=== PATIENT | male | born 1955 ===

== ENCOUNTER 2021-02-04 18:22 | Inpatient (IN) | payer OTHER ==
[2021-02-04] MEDS ORDERED: BISMUTH SUBSALICYLATE 524 MG/30 ML PO PRN (23:24)
[2021-02-04] MEDS ORDERED: MENTHOL/PHENOL 1 EACH UD MM PRN (23:24)
[2021-02-04] MEDS ORDERED: NICOTINE POLACRILEX 2 MG GUM BUC PRN (23:24)
[2021-02-04] MEDS ORDERED: IBUPROFEN 400 MG TABLET (FP) PO PRN (23:24)
[2021-02-04] MEDS ORDERED: ACETAMINOPHEN 325 MG TABLET (FP) PO PRN ×2 (23:24)
[2021-02-04] MEDS ORDERED: MAG HYDROX/AL HYDROX/SIMETH 30 ML UNIT-DOSE CUP PO PRN (23:24)
[2021-02-04] MEDS ORDERED: ONDANSETRON *ODT* 4 MG TABLET SL PRN (23:24)
[2021-02-04] MEDS ORDERED: MAGNESIUM CITRATE 300 ML BOTTLE PO PRN (23:24)
[2021-02-04] MEDS ORDERED: METHOCARBAMOL 500 MG TABLET PO PRN (23:24)
[2021-02-04] MEDS ORDERED: MAGNESIUM HYDROX 2400MG/30ML ORAL SUSPENSION 30 ML CUP PO PRN (23:24)
[2021-02-04] MEDS ORDERED: diazePAM 5 MG TABLET PO PRN (23:28)
[2021-02-05] MEDS: diazePAM 5 MG TABLET PO SCH ×5 (06:29→22:33)
[2021-02-05] MEDS ORDERED: diazePAM 5 MG TABLET ONE ×2 (06:30→10:28)
[2021-02-05 08:11] VITALS: BMI 23.9
[2021-02-05] MEDS ORDERED: METFORMIN HCL 1000 MG PO SCH (10:00)
[2021-02-05] MEDS ORDERED: LEVOTHYROXINE NA 88 MCG TABLET (FP) PO SCH (10:00)
[2021-02-05] MEDS ORDERED: ESOMEPRAZOLE MAGNESIUM 20 MG PO SCH (10:00)
[2021-02-05] MEDS ORDERED: PATIENT'S OWN MEDICATION (NON-FORMULARY) (Simvastatin 20 MG) PO SCH (10:00)
[2021-02-05] MEDS: NICOTINE 14 MG/24 HOURS TOPICAL PATCH TD SCH (10:32)
[2021-02-05] MEDS: PRENATAL VITAMINS W/ FOLIC ACID TABLET (FP) PO SCH (10:32)
[2021-02-05 17:04] LABS: HEMATOCRIT 37.1 % (35.4-49); HEMOGLOBIN 12.2 GM/dL (11.7-16.9); MCH 28.6 pg (25.7-33.7); MCHC 32.7 g/dl (32.0-35.9); MEAN CELL VOLUME 87.5 fl (80-96); MEAN PLT VOLUME 7.7 fl (7.5-11.1); PLATELET COUNT 345 10^3/uL (134-434); RBC 4.25 M/mm3 (4.00-5.60); RDW 19.5 % (11.9-15.9); WHITE BLOOD COUNT 5.4 K/mm3 (4.0-10.0)
[2021-02-05 17:05] LABS: ALBUMIN 3.2 g/dl (3.4-5.0)
[2021-02-05 17:07] LABS: BILIRUBIN,TOTAL 0.2 mg/dL (0.2-1)
[2021-02-05 17:08] LABS: CALCIUM 9.3 mg/dL (8.5-10.1)
[2021-02-05] MEDS: MELATONIN 5 MG TABLETS PO SCH (22:33)
[2021-02-05] MEDS: ATORVASTATIN CA 10 MG TABLET (FP) PO SCH (22:33)
[2021-02-05] MEDS: THIAMINE HCL 100 MG TABLET (FP) PO SCH (22:44)
[2021-02-06] MEDS: diazePAM 5 MG TABLET PO SCH ×3 (05:52→22:43)
[2021-02-06] MEDS: LEVOTHYROXINE NA 88 MCG TABLET (FP) PO SCH (06:03)
[2021-02-06] MEDS ORDERED: WITCH HAZEL 50% (TUCKS) 40 PAD/JAR PAD TP SCH (10:15)
[2021-02-06] MEDS: NICOTINE 14 MG/24 HOURS TOPICAL PATCH TD SCH (10:23)
[2021-02-06] MEDS: PANTOPRAZOLE 20 MG TABLET PO SCH (10:23)
[2021-02-06] MEDS: PRENATAL VITAMINS W/ FOLIC ACID TABLET (FP) PO SCH (10:23)
[2021-02-06] MEDS: MICONAZOLE NITRATE 28 GM TUBE TP SCH ×2 (13:21→22:44)
[2021-02-06] MEDS: THIAMINE HCL 100 MG TABLET (FP) PO SCH (22:43)
[2021-02-06] MEDS: MELATONIN 5 MG TABLETS PO SCH (22:43)
[2021-02-06] MEDS: ATORVASTATIN CA 10 MG TABLET (FP) PO SCH (22:43)
[2021-02-07] MEDS: diazePAM 5 MG TABLET PO SCH ×2 (05:51→17:48)
[2021-02-07] MEDS: LEVOTHYROXINE NA 88 MCG TABLET (FP) PO SCH (06:27)
[2021-02-07] MEDS: PRENATAL VITAMINS W/ FOLIC ACID TABLET (FP) PO SCH (10:32)
[2021-02-07] MEDS: PANTOPRAZOLE 20 MG TABLET PO SCH (10:32)
[2021-02-07] MEDS: NICOTINE 14 MG/24 HOURS TOPICAL PATCH TD SCH (10:33)
[2021-02-07] MEDS: MICONAZOLE NITRATE 28 GM TUBE TP SCH ×2 (10:35→22:46)
[2021-02-07] MEDS: THIAMINE HCL 100 MG TABLET (FP) PO SCH (22:45)
[2021-02-07] MEDS: MELATONIN 5 MG TABLETS PO SCH (22:45)
[2021-02-07] MEDS: ATORVASTATIN CA 10 MG TABLET (FP) PO SCH (22:45)
[2021-02-08] MEDS ORDERED: P-EPHED 60MG/TRIPROLIDI 2.5MG TABLET PO PRN (03:45)
[2021-02-08] MEDS ORDERED: diazePAM 5 MG TABLET PO ONE (06:00)
[2021-02-08] MEDS: LEVOTHYROXINE NA 88 MCG TABLET (FP) PO SCH (06:12)
[2021-02-08 08:50] VITALS: BP 127/79; PULSE 70; TEMP 96.9
== END 2021-02-08 10:28 | disposition home or self-care (01) | DRG 897 ==
LOC: YASAS 18:22 → Y3N 02-05 11:16
PROVIDERS: ADMIT Allergy & Immunology; ATTEND Allergy & Immunology
PROC: HZ2ZZZZ Detoxification Services for Substance Abuse Treatment (ICD-10-PCS; principal; 2021-02-05)
DX: F10.230 Alcohol dependence with withdrawal, uncomplicated (principal); F14.20 Cocaine dependence, uncomplicated; F17.210 Nicotine dependence, cigarettes, uncomplicated; I10 Essential (primary) hypertension; E78.5 Hyperlipidemia, unspecified; E03.9 Hypothyroidism, unspecified; E11.9 Type 2 diabetes mellitus without complications; K21.9 Gastro-esophageal reflux disease without esophagitis; Z86.19 Personal history of other infectious and parasitic diseases; Z79.84 Long term (current) use of oral hypoglycemic drugs
CPT/HCPCS: 36415; 80053; 82962; 85027; 86593; 86780; 93005; 93010; C9803; U0003; U0005

== ENCOUNTER 2022-05-26 14:02 | Inpatient (IN) | payer OTHER ==
[2022-05-26 16:57] VITALS: BMI 21.7
[2022-05-26] MEDS ORDERED: DICYCLOMINE HCL 10 MG CAPSULE PO PRN (17:38)
[2022-05-26] MEDS ORDERED: ONDANSETRON *ODT* 4 MG TABLET SL PRN (17:38)
[2022-05-26] MEDS ORDERED: LOPERAMIDE HCL 2 MG CAPSULE PO PRN (17:38)
[2022-05-26] MEDS ORDERED: MAG HYDROX/AL HYDROX/SIMETH 30 ML UNIT-DOSE CUP PO PRN (17:38)
[2022-05-26] MEDS ORDERED: BENZOCAINE/MENTHOL (CHLORASEPTIC ) LOZENGE MM PRN (17:38)
[2022-05-26] MEDS ORDERED: BISMUTH SUBSALICYLATE 524 MG/30 ML PO PRN (17:38)
[2022-05-26] MEDS ORDERED: IBUPROFEN 600 MG TABLET (FP) PO PRN (17:38)
[2022-05-26] MEDS ORDERED: NALOXONE HCL (KLOXXADO) 8 MG SPRAY NS PRN (17:38)
[2022-05-26] MEDS ORDERED: MAGNESIUM HYDROX 2400MG/30ML ORAL SUSPENSION 30 ML CUP PO PRN (17:38)
[2022-05-26] MEDS ORDERED: ACETAMINOPHEN 325 MG TABLET (FP) PO PRN ×2 (17:38)
[2022-05-26] MEDS ORDERED: POLYETHYLENE GLYCOL (HEALTHYLAX) 3350 17 GM PACKET PO PRN (17:38)
[2022-05-26] MEDS ORDERED: NICOTINE 10 MG CARTRIDGE (INHALER) IH PRN (17:38)
[2022-05-26] MEDS ORDERED: IBUPROFEN 400 MG TABLET (FP) PO PRN (17:38)
[2022-05-26] MEDS: MELATONIN 5 MG TABLETS PO SCH (21:39)
[2022-05-26] MEDS: THIAMINE HCL 100 MG TABLET (FP) PO SCH (21:39)
[2022-05-27] MEDS: METHOCARBAMOL 500 MG TABLET PO PRN ×2 (05:51→22:41)
[2022-05-27] MEDS: hydrOXYzine PAMOATE 25 MG CAPSULE (FP) PO PRN ×2 (05:51→22:42)
[2022-05-27] MEDS: PRENATAL VITAMINS W/ FOLIC ACID TABLET (FP) PO SCH (10:30)
[2022-05-27 10:45] LABS: HEMATOCRIT 34.9 % (35.4-49); HEMOGLOBIN 11.5 GM/dL (11.7-16.9); MCH 29.5 pg (25.7-33.7); MEAN CELL VOLUME 89.3 fl (80-96); MEAN PLT VOLUME 7.4 fl (7.5-11.1); PLATELET COUNT 375 10^3/uL (134-434); RBC 3.91 M/mm3 (4.00-5.60); RDW 17.3 % (11.9-15.9); WHITE BLOOD COUNT 6.7 K/mm3 (4.0-10.0)
[2022-05-27] MEDS: LEVOTHYROXINE NA 88 MCG TABLET (FP) PO SCH (11:10)
[2022-05-27] MEDS: guaiFENesin 600 MG TABLET.ER (FP) PO SCH ×2 (12:17→22:42)
[2022-05-27 12:51] LABS: BLOOD UREA NITROGEN 18.7 mg/dL (7-18); CALCIUM 9.4 mg/dL (8.5-10.1)
[2022-05-27 12:52] LABS: ALBUMIN 3.9 g/dl (3.4-5.0)
[2022-05-27 12:55] LABS: CREATININE 1.2 mg/dL (0.55-1.3)
[2022-05-27 12:56] LABS: TOT PROT 7.7 g/dl (6.4-8.2)
[2022-05-27 12:57] LABS: BILIRUBIN,TOTAL 0.5 mg/dL (0.2-1)
[2022-05-27] MEDS: MESALAMINE 800 MG TABLET.DR PO SCH ×2 (13:46→22:41)
[2022-05-27] MEDS ORDERED: MESALAMINE 800 MG TABLET.DR PO SCH (14:00)
[2022-05-27] MEDS ORDERED: metFORMIN HCL 500 MG TABLET (FP) PO SCH (16:30)
[2022-05-27] MEDS ORDERED: ATORVASTATIN CA 10 MG TABLET (FP) PO SCH (22:00)
[2022-05-27] MEDS: MELATONIN 5 MG TABLETS PO SCH (22:41)
[2022-05-27] MEDS: THIAMINE HCL 100 MG TABLET (FP) PO SCH (22:42)
[2022-05-28] MEDS: MESALAMINE 800 MG TABLET.DR PO SCH ×2 (05:44→14:15)
[2022-05-28] MEDS: LEVOTHYROXINE NA 88 MCG TABLET (FP) PO SCH (06:06)
[2022-05-28] MEDS ORDERED: amLODIPine BESYLATE 5 MG TABLET (FP) PO SCH (10:00)
[2022-05-28] MEDS ORDERED: PANTOPRAZOLE 20 MG TABLET PO SCH (10:00)
[2022-05-28] MEDS: PRENATAL VITAMINS W/ FOLIC ACID TABLET (FP) PO SCH (10:25)
[2022-05-28] MEDS: guaiFENesin 600 MG TABLET.ER (FP) PO SCH (10:25)
[2022-05-28 17:18] VITALS: BP 120/77; PULSE 73; RESP 18; TEMP 97.7
== END 2022-05-28 18:49 | disposition other institution (70) | DRG 897 ==
LOC: YASAS 14:02 → Y3N 21:05 → UNDOADMIN 21:05
PROVIDERS: ADMIT Allergy & Immunology; ATTEND Surgery
PROC: HZ2ZZZZ Detoxification Services for Substance Abuse Treatment (ICD-10-PCS; principal; 2022-05-26)
DX: F10.230 Alcohol dependence with withdrawal, uncomplicated (principal); F14.20 Cocaine dependence, uncomplicated; F17.210 Nicotine dependence, cigarettes, uncomplicated; E78.2 Mixed hyperlipidemia; E03.9 Hypothyroidism, unspecified; E11.9 Type 2 diabetes mellitus without complications; Z79.84 Long term (current) use of oral hypoglycemic drugs; I10 Essential (primary) hypertension
CPT/HCPCS: 36415; 80053; 82962; 84443; 85027; 86593; 86780; C9803-CS; U0003; U0005

== ENCOUNTER 2022-05-28 18:57 | Inpatient (IN) | payer OTHER ==
[2022-05-28] MEDS ORDERED: IBUPROFEN 400 MG TABLET (FP) PO PRN (21:00)
[2022-05-28] MEDS ORDERED: MAGNESIUM HYDROX 2400MG/30ML ORAL SUSPENSION 30 ML CUP PO PRN (21:00)
[2022-05-28] MEDS ORDERED: BENZOCAINE/MENTHOL (CHLORASEPTIC ) LOZENGE MM PRN (21:00)
[2022-05-28] MEDS ORDERED: LOPERAMIDE HCL 2 MG CAPSULE PO PRN (21:00)
[2022-05-28] MEDS ORDERED: guaiFENesin 200 MG/10 ML 10 ML UNIT-DOSE CUPS PO PRN (21:00)
[2022-05-28] MEDS ORDERED: ACETAMINOPHEN 325 MG TABLET (FP) PO PRN (21:00)
[2022-05-28] MEDS ORDERED: POLYETHYLENE GLYCOL (HEALTHYLAX) 3350 17 GM PACKET PO PRN (21:00)
[2022-05-28] MEDS ORDERED: P-EPHED 60MG/TRIPROLIDI 2.5MG TABLET PO PRN (21:00)
[2022-05-28] MEDS ORDERED: NICOTINE POLACRILEX 2 MG GUM BUC PRN (21:00)
[2022-05-28] MEDS: ATORVASTATIN CA 10 MG TABLET (FP) PO SCH (21:22)
[2022-05-28] MEDS: THIAMINE HCL 100 MG TABLET (FP) PO SCH (21:22)
[2022-05-28] MEDS: MESALAMINE 800 MG TABLET.DR PO SCH (23:38)
[2022-05-29] MEDS: LEVOTHYROXINE NA 88 MCG TABLET (FP) PO SCH (06:17)
[2022-05-29] MEDS: MESALAMINE 800 MG TABLET.DR PO SCH ×3 (06:17→21:27)
[2022-05-29] MEDS: PANTOPRAZOLE 20 MG TABLET PO SCH (09:49)
[2022-05-29] MEDS: amLODIPine BESYLATE 5 MG TABLET (FP) PO SCH (09:49)
[2022-05-29] MEDS: PRENATAL VITAMINS W/ FOLIC ACID TABLET (FP) PO SCH (09:49)
[2022-05-29] MEDS: MELATONIN 5 MG TABLETS PO PRN (21:27)
[2022-05-29] MEDS: THIAMINE HCL 100 MG TABLET (FP) PO SCH (21:27)
[2022-05-29] MEDS: ATORVASTATIN CA 10 MG TABLET (FP) PO SCH (21:27)
[2022-05-30] MEDS: MESALAMINE 800 MG TABLET.DR PO SCH ×3 (06:46→21:38)
[2022-05-30] MEDS: LEVOTHYROXINE NA 88 MCG TABLET (FP) PO SCH (06:48)
[2022-05-30] MEDS: amLODIPine BESYLATE 5 MG TABLET (FP) PO SCH (10:07)
[2022-05-30] MEDS: PRENATAL VITAMINS W/ FOLIC ACID TABLET (FP) PO SCH (10:07)
[2022-05-30] MEDS: PANTOPRAZOLE 20 MG TABLET PO SCH (10:07)
[2022-05-30] MEDS: MELATONIN 5 MG TABLETS PO PRN (21:38)
[2022-05-30] MEDS: THIAMINE HCL 100 MG TABLET (FP) PO SCH (21:38)
[2022-05-30] MEDS: ATORVASTATIN CA 10 MG TABLET (FP) PO SCH (21:38)
[2022-05-31] MEDS: MESALAMINE 800 MG TABLET.DR PO SCH ×3 (06:51→21:12)
[2022-05-31] MEDS: LEVOTHYROXINE NA 88 MCG TABLET (FP) PO SCH (06:54)
[2022-05-31 09:16] LABS: HIV INTERPRETATION NEGATIVE (NEGATIVE)
[2022-05-31] MEDS: PANTOPRAZOLE 20 MG TABLET PO SCH (09:40)
[2022-05-31] MEDS: PRENATAL VITAMINS W/ FOLIC ACID TABLET (FP) PO SCH (09:40)
[2022-05-31] MEDS: amLODIPine BESYLATE 5 MG TABLET (FP) PO SCH (09:40)
[2022-05-31] MEDS: ATORVASTATIN CA 10 MG TABLET (FP) PO SCH (21:11)
[2022-05-31] MEDS: THIAMINE HCL 100 MG TABLET (FP) PO SCH (21:11)
[2022-05-31] MEDS: MELATONIN 5 MG TABLETS PO PRN (21:12)
[2022-06-01] MEDS: MESALAMINE 800 MG TABLET.DR PO SCH ×3 (06:16→21:47)
[2022-06-01] MEDS: LEVOTHYROXINE NA 88 MCG TABLET (FP) PO SCH (06:16)
[2022-06-01] MEDS: PRENATAL VITAMINS W/ FOLIC ACID TABLET (FP) PO SCH (09:49)
[2022-06-01] MEDS: PANTOPRAZOLE 20 MG TABLET PO SCH (09:50)
[2022-06-01] MEDS: amLODIPine BESYLATE 5 MG TABLET (FP) PO SCH (09:50)
[2022-06-01] MEDS: THIAMINE HCL 100 MG TABLET (FP) PO SCH (21:47)
[2022-06-01] MEDS: ATORVASTATIN CA 10 MG TABLET (FP) PO SCH (21:47)
[2022-06-02] MEDS: LEVOTHYROXINE NA 88 MCG TABLET (FP) PO SCH (06:35)
[2022-06-02] MEDS: MESALAMINE 800 MG TABLET.DR PO SCH ×3 (06:35→21:19)
[2022-06-02] MEDS: PANTOPRAZOLE 20 MG TABLET PO SCH (09:42)
[2022-06-02] MEDS: amLODIPine BESYLATE 5 MG TABLET (FP) PO SCH (09:42)
[2022-06-02] MEDS: PRENATAL VITAMINS W/ FOLIC ACID TABLET (FP) PO SCH (09:42)
[2022-06-02] MEDS: ATORVASTATIN CA 10 MG TABLET (FP) PO SCH (21:19)
[2022-06-02] MEDS: THIAMINE HCL 100 MG TABLET (FP) PO SCH (21:19)
[2022-06-03] MEDS: MESALAMINE 800 MG TABLET.DR PO SCH ×3 (05:19→21:03)
[2022-06-03] MEDS: LEVOTHYROXINE NA 88 MCG TABLET (FP) PO SCH (06:27)
[2022-06-03] MEDS: PANTOPRAZOLE 20 MG TABLET PO SCH (09:30)
[2022-06-03] MEDS: amLODIPine BESYLATE 5 MG TABLET (FP) PO SCH (09:30)
[2022-06-03] MEDS: PRENATAL VITAMINS W/ FOLIC ACID TABLET (FP) PO SCH (09:30)
[2022-06-03] MEDS: ATORVASTATIN CA 10 MG TABLET (FP) PO SCH (21:03)
[2022-06-03] MEDS: THIAMINE HCL 100 MG TABLET (FP) PO SCH (21:04)
[2022-06-04] MEDS: MESALAMINE 800 MG TABLET.DR PO SCH ×3 (06:26→21:31)
[2022-06-04] MEDS: LEVOTHYROXINE NA 88 MCG TABLET (FP) PO SCH (06:27)
[2022-06-04] MEDS: PRENATAL VITAMINS W/ FOLIC ACID TABLET (FP) PO SCH (09:39)
[2022-06-04] MEDS: PANTOPRAZOLE 20 MG TABLET PO SCH (09:40)
[2022-06-04] MEDS: amLODIPine BESYLATE 5 MG TABLET (FP) PO SCH (09:40)
[2022-06-04] MEDS: MELATONIN 5 MG TABLETS PO PRN (21:30)
[2022-06-04] MEDS: ATORVASTATIN CA 10 MG TABLET (FP) PO SCH (21:31)
[2022-06-04] MEDS: THIAMINE HCL 100 MG TABLET (FP) PO SCH (21:31)
[2022-06-04] MEDS: MESALAMINE 4 GM/60 ML ENEMA RC SCH (21:32)
[2022-06-05] MEDS: MESALAMINE 800 MG TABLET.DR PO SCH ×3 (07:55→21:11)
[2022-06-05] MEDS: LEVOTHYROXINE NA 88 MCG TABLET (FP) PO SCH (07:56)
[2022-06-05] MEDS: amLODIPine BESYLATE 5 MG TABLET (FP) PO SCH (09:35)
[2022-06-05] MEDS: PRENATAL VITAMINS W/ FOLIC ACID TABLET (FP) PO SCH (09:36)
[2022-06-05] MEDS: PANTOPRAZOLE 20 MG TABLET PO SCH (09:36)
[2022-06-05] MEDS: THIAMINE HCL 100 MG TABLET (FP) PO SCH (21:10)
[2022-06-05] MEDS: MESALAMINE 4 GM/60 ML ENEMA RC SCH (21:11)
[2022-06-05] MEDS: ATORVASTATIN CA 10 MG TABLET (FP) PO SCH (21:11)
[2022-06-06] MEDS: LEVOTHYROXINE NA 88 MCG TABLET (FP) PO SCH (06:43)
[2022-06-06] MEDS: MESALAMINE 800 MG TABLET.DR PO SCH ×3 (06:43→21:08)
[2022-06-06] MEDS: amLODIPine BESYLATE 5 MG TABLET (FP) PO SCH (09:40)
[2022-06-06] MEDS: PANTOPRAZOLE 20 MG TABLET PO SCH (09:40)
[2022-06-06] MEDS: PRENATAL VITAMINS W/ FOLIC ACID TABLET (FP) PO SCH (09:40)
[2022-06-06] MEDS: ATORVASTATIN CA 10 MG TABLET (FP) PO SCH (21:08)
[2022-06-06] MEDS: MESALAMINE 4 GM/60 ML ENEMA RC SCH (21:08)
[2022-06-06] MEDS: THIAMINE HCL 100 MG TABLET (FP) PO SCH (21:08)
[2022-06-07] MEDS: MESALAMINE 800 MG TABLET.DR PO SCH ×3 (07:06→21:57)
[2022-06-07] MEDS: LEVOTHYROXINE NA 88 MCG TABLET (FP) PO SCH (07:07)
[2022-06-07] MEDS: PANTOPRAZOLE 20 MG TABLET PO SCH (09:28)
[2022-06-07] MEDS: PRENATAL VITAMINS W/ FOLIC ACID TABLET (FP) PO SCH (09:28)
[2022-06-07] MEDS: amLODIPine BESYLATE 5 MG TABLET (FP) PO SCH (09:28)
[2022-06-07] MEDS: ATORVASTATIN CA 10 MG TABLET (FP) PO SCH (21:57)
[2022-06-07] MEDS: THIAMINE HCL 100 MG TABLET (FP) PO SCH (21:57)
[2022-06-07] MEDS: MELATONIN 5 MG TABLETS PO PRN (21:57)
[2022-06-07] MEDS: MESALAMINE 4 GM/60 ML ENEMA RC SCH (21:58)
[2022-06-08] MEDS: LEVOTHYROXINE NA 88 MCG TABLET (FP) PO SCH (06:58)
[2022-06-08] MEDS: MESALAMINE 800 MG TABLET.DR PO SCH ×3 (06:58→21:11)
[2022-06-08] MEDS: PRENATAL VITAMINS W/ FOLIC ACID TABLET (FP) PO SCH (09:32)
[2022-06-08] MEDS: amLODIPine BESYLATE 5 MG TABLET (FP) PO SCH (09:32)
[2022-06-08] MEDS: PANTOPRAZOLE 20 MG TABLET PO SCH (09:32)
[2022-06-08] MEDS: MAG HYDROX/AL HYDROX/SIMETH 30 ML UNIT-DOSE CUP PO PRN ×2 (13:41→21:12)
[2022-06-08] MEDS: THIAMINE HCL 100 MG TABLET (FP) PO SCH (21:11)
[2022-06-08] MEDS: ATORVASTATIN CA 10 MG TABLET (FP) PO SCH (21:11)
[2022-06-08] MEDS: MELATONIN 5 MG TABLETS PO PRN (21:11)
[2022-06-08] MEDS: MESALAMINE 4 GM/60 ML ENEMA RC SCH (21:12)
[2022-06-09] MEDS: LEVOTHYROXINE NA 88 MCG TABLET (FP) PO SCH (07:08)
[2022-06-09] MEDS: MESALAMINE 800 MG TABLET.DR PO SCH ×3 (07:08→21:27)
[2022-06-09] MEDS: MAG HYDROX/AL HYDROX/SIMETH 30 ML UNIT-DOSE CUP PO PRN (07:10)
[2022-06-09] MEDS: PRENATAL VITAMINS W/ FOLIC ACID TABLET (FP) PO SCH (09:25)
[2022-06-09] MEDS: amLODIPine BESYLATE 5 MG TABLET (FP) PO SCH (09:25)
[2022-06-09] MEDS: PANTOPRAZOLE 20 MG TABLET PO SCH (09:47)
[2022-06-09] MEDS: MELATONIN 5 MG TABLETS PO PRN (21:26)
[2022-06-09] MEDS: MESALAMINE 4 GM/60 ML ENEMA RC SCH (21:27)
[2022-06-09] MEDS: THIAMINE HCL 100 MG TABLET (FP) PO SCH (21:27)
[2022-06-09] MEDS: ATORVASTATIN CA 10 MG TABLET (FP) PO SCH (21:27)
[2022-06-10 06:38] VITALS: RESP 18
[2022-06-10] MEDS: MESALAMINE 800 MG TABLET.DR PO SCH ×3 (07:00→21:27)
[2022-06-10] MEDS: LEVOTHYROXINE NA 88 MCG TABLET (FP) PO SCH (08:04)
[2022-06-10] MEDS: PRENATAL VITAMINS W/ FOLIC ACID TABLET (FP) PO SCH (10:46)
[2022-06-10] MEDS: PANTOPRAZOLE 20 MG TABLET PO SCH (10:46)
[2022-06-10] MEDS: amLODIPine BESYLATE 5 MG TABLET (FP) PO SCH (10:46)
[2022-06-10] MEDS: ATORVASTATIN CA 10 MG TABLET (FP) PO SCH (21:27)
[2022-06-10] MEDS: THIAMINE HCL 100 MG TABLET (FP) PO SCH (21:27)
[2022-06-10] MEDS: MESALAMINE 4 GM/60 ML ENEMA RC SCH (21:28)
[2022-06-11] MEDS: MESALAMINE 800 MG TABLET.DR PO SCH (06:32)
[2022-06-11] MEDS: LEVOTHYROXINE NA 88 MCG TABLET (FP) PO SCH (06:32)
[2022-06-11 07:12] VITALS: BP 123/63; PULSE 59; TEMP 98.4
[2022-06-11] MEDS: PRENATAL VITAMINS W/ FOLIC ACID TABLET (FP) PO SCH (09:36)
[2022-06-11] MEDS: PANTOPRAZOLE 20 MG TABLET PO SCH (09:36)
[2022-06-11] MEDS: amLODIPine BESYLATE 5 MG TABLET (FP) PO SCH (09:36)
== END 2022-06-11 10:00 | disposition home or self-care (01) | DRG 895 ==
LOC: YASAS 18:57 → Y5N 18:59
PROVIDERS: ADMIT Allergy & Immunology; ATTEND Allergy & Immunology
PROC: HZ42ZZZ Group Counseling for Substance Abuse Treatment, Cognitive-Behavioral (ICD-10-PCS; principal; 2022-05-28)
DX: F10.20 Alcohol dependence, uncomplicated (principal); F14.20 Cocaine dependence, uncomplicated; K51.00 Ulcerative (chronic) pancolitis without complications; F17.210 Nicotine dependence, cigarettes, uncomplicated; I10 Essential (primary) hypertension; E78.2 Mixed hyperlipidemia; E06.9 Thyroiditis, unspecified; E11.9 Type 2 diabetes mellitus without complications; Z79.84 Long term (current) use of oral hypoglycemic drugs; K21.9 Gastro-esophageal reflux disease without esophagitis; M19.90 Unspecified osteoarthritis, unspecified site; Z99.89 Dependence on other enabling machines and devices
CPT/HCPCS: 36415; 82962; 87389

== ENCOUNTER 2022-10-14 10:09 | Inpatient (IN) | payer OTHER ==
[2022-10-14 10:45] VITALS: BMI 23.1
[2022-10-14] MEDS ORDERED: guaiFENesin 600 MG TABLET.ER (FP) PO PRN (11:28)
[2022-10-14] MEDS ORDERED: NICOTINE 10 MG CARTRIDGE (INHALER) IH PRN (11:28)
[2022-10-14] MEDS ORDERED: BENZOCAINE/MENTHOL (CHLORASEPTIC ) LOZENGE MM PRN (11:28)
[2022-10-14] MEDS ORDERED: LOPERAMIDE HCL 2 MG CAPSULE PO PRN (11:28)
[2022-10-14] MEDS ORDERED: POLYETHYLENE GLYCOL (HEALTHYLAX) 3350 17 GM PACKET PO PRN (11:28)
[2022-10-14] MEDS ORDERED: NALOXONE HCL 0.4 MG/ML VIAL IM PRN (11:28)
[2022-10-14] MEDS ORDERED: hydrOXYzine PAMOATE 25 MG CAPSULE (FP) PO PRN (11:28)
[2022-10-14] MEDS ORDERED: MAG HYDROX/AL HYDROX/SIMETH 30 ML UNIT-DOSE CUP PO PRN (11:28)
[2022-10-14] MEDS ORDERED: NICOTINE POLACRILEX 2 MG GUM BUC PRN (11:28)
[2022-10-14] MEDS ORDERED: IBUPROFEN 600 MG TABLET (FP) PO PRN (11:28)
[2022-10-14] MEDS ORDERED: BENZONATATE 200 MG CAPSULE PO PRN (11:28)
[2022-10-14] MEDS ORDERED: COLLOIDAL OATMEAL 1 BAR EACH TP PRN (11:28)
[2022-10-14] MEDS ORDERED: ACETAMINOPHEN 325 MG TABLET (FP) PO PRN (11:28)
[2022-10-14] MEDS ORDERED: AMMONIUM LACTATE 12% LOTION 225 GM BOTTLE TP PRN (11:28)
[2022-10-14] MEDS ORDERED: NALOXONE HCL (KLOXXADO) 8 MG SPRAY NS PRN (11:28)
[2022-10-14] MEDS ORDERED: IBUPROFEN 400 MG TABLET (FP) PO PRN (11:28)
[2022-10-14] MEDS ORDERED: MAGNESIUM HYDROX 2400MG/30ML ORAL SUSPENSION 30 ML CUP PO PRN (11:28)
[2022-10-14] MEDS: MESALAMINE 800 MG TABLET.DR PO SCH ×2 (14:42→21:13)
[2022-10-14 15:59] LABS: HEMATOCRIT 37.4 % (35.4-49); HEMOGLOBIN 11.8 GM/dL (11.7-16.9); MCH 27.8 pg (25.7-33.7); MCHC 31.7 g/dl (32.0-35.9); MEAN CELL VOLUME 87.8 fl (80-96); PLATELET COUNT 400 10^3/uL (134-434); RBC 4.26 M/mm3 (4.00-5.60); RDW 18.3 % (11.9-15.9); WHITE BLOOD COUNT 8.1 K/mm3 (4.0-10.0)
[2022-10-14 16:05] LABS: POTASSIUM 4.2 mmol/L (3.5-5.1)
[2022-10-14 16:08] LABS: CALCIUM 9.3 mg/dL (8.5-10.1)
[2022-10-14 16:11] LABS: CREATININE 1.2 mg/dL (0.55-1.3)
[2022-10-14 16:13] LABS: BILIRUBIN,TOTAL 0.2 mg/dL (0.2-1); TOT PROT 7.7 g/dl (6.4-8.2)
[2022-10-14 17:03] LABS: SYPHILIS W/ RPR CONF REACTIVE (NONREACTIVE)
[2022-10-14] MEDS ORDERED: MELATONIN 5 MG TABLETS PO SCH (22:00)
[2022-10-14] MEDS ORDERED: ATORVASTATIN CA 10 MG TABLET (FP) PO SCH (22:00)
[2022-10-14] MEDS ORDERED: MESALAMINE 4 GM/60 ML ENEMA RC SCH (22:00)
[2022-10-14] MEDS ORDERED: THIAMINE HCL 100 MG TABLET (FP) PO SCH (22:00)
[2022-10-15] MEDS: MESALAMINE 800 MG TABLET.DR PO SCH (06:12)
[2022-10-15 06:36] VITALS: TEMP 97.8
[2022-10-15] MEDS ORDERED: LEVOTHYROXINE NA 88 MCG TABLET (FP) PO SCH (07:00)
[2022-10-15 07:40] VITALS: RESP 18
[2022-10-15 09:05] VITALS: BP 151/78; PULSE 70
[2022-10-15] MEDS ORDERED: PRENATAL VITAMINS W/ FOLIC ACID TABLET (FP) PO SCH (10:00)
[2022-10-15] MEDS ORDERED: amLODIPine BESYLATE 5 MG TABLET (FP) PO SCH (10:00)
[2022-10-15] MEDS ORDERED: PANTOPRAZOLE 20 MG TABLET PO SCH (10:00)
== END 2022-10-15 09:20 | disposition left against medical advice (07) | DRG 894 ==
LOC: YASAS 10:09 → Y3E 12:02
PROVIDERS: ADMIT Allergy & Immunology; ATTEND Psychiatry & Neurology Pain Medicine
PROC: HZ42ZZZ Group Counseling for Substance Abuse Treatment, Cognitive-Behavioral (ICD-10-PCS; principal; 2022-10-14)
DX: F10.20 Alcohol dependence, uncomplicated (principal); F14.20 Cocaine dependence, uncomplicated; F19.282 Other psychoactive substance dependence with psychoactive substance-induced sleep disorder; F17.210 Nicotine dependence, cigarettes, uncomplicated; I10 Essential (primary) hypertension; E03.9 Hypothyroidism, unspecified; E11.9 Type 2 diabetes mellitus without complications; E78.00 Pure hypercholesterolemia, unspecified; K21.9 Gastro-esophageal reflux disease without esophagitis; M06.9 Rheumatoid arthritis, unspecified; Z79.84 Long term (current) use of oral hypoglycemic drugs
CPT/HCPCS: 36415; 80053; 81003; 82962; 85027; 86593; 86780; 86803; 87635; 87811

== ENCOUNTER 2023-11-04 16:43 | Inpatient (IN) | payer OTHER ==
[2023-11-04 17:20] VITALS: BMI 22.0
[2023-11-04] MEDS ORDERED: guaiFENesin 600 MG TABLET.ER (FP) PO PRN (19:29)
[2023-11-04] MEDS ORDERED: LOPERAMIDE HCL 2 MG CAPSULE PO PRN (19:29)
[2023-11-04] MEDS ORDERED: ONDANSETRON *ODT* 4 MG TABLET SL PRN (19:29)
[2023-11-04] MEDS ORDERED: IBUPROFEN 400 MG TABLET (FP) PO PRN (19:29)
[2023-11-04] MEDS ORDERED: MAG HYDROX/AL HYDROX/SIMETH 30 ML UNIT-DOSE CUP PO PRN (19:29)
[2023-11-04] MEDS ORDERED: DICYCLOMINE HCL 10 MG CAPSULE PO PRN (19:29)
[2023-11-04] MEDS ORDERED: hydrOXYzine PAMOATE 25 MG CAPSULE (FP) PO PRN (19:29)
[2023-11-04] MEDS: THIAMINE 100 MG TABLET PO SCH (22:48)
[2023-11-04] MEDS: MESALAMINE 800 MG TABLET.DR PO SCH (22:49)
[2023-11-04] MEDS: ATORVASTATIN CA 10 MG TABLET (FP) PO SCH (22:49)
[2023-11-04] MEDS: diazePAM 5 MG TABLET PO SCH (22:50)
[2023-11-04] MEDS: MESALAMINE 4 GM/60 ML ENEMA RC SCH (22:50)
[2023-11-05] MEDS: LEVOTHYROXINE NA 88 MCG TABLET (FP) PO SCH (06:57)
[2023-11-05] MEDS: PANTOPRAZOLE 20 MG TABLET PO SCH (10:38)
[2023-11-05] MEDS: PRENATAL VITAMINS W/ FOLIC ACID TABLET (FP) PO SCH (10:39)
[2023-11-05] MEDS: amLODIPine BESYLATE 5 MG TABLET (FP) PO SCH (10:39)
[2023-11-05 11:35] LABS: HEMATOCRIT 34.7 % (35.4-49); HEMOGLOBIN 11.4 GM/dL (11.7-16.9); MCH 29.4 pg (25.7-33.7); MCHC 32.8 g/dl (32.0-35.9); MEAN CELL VOLUME 89.8 fl (80-96); MEAN PLT VOLUME 7.1 fl (7.5-11.1); PLATELET COUNT 305 10^3/uL (134-434); RBC 3.86 M/mm3 (4.00-5.60); RDW 16.5 % (11.9-15.9); WHITE BLOOD COUNT 6.1 K/mm3 (4.0-10.0)
[2023-11-05 11:40] LABS: POTASSIUM 3.7 mmol/L (3.5-5.1)
[2023-11-05 11:49] LABS: ALBUMIN 3.8 g/dl (3.4-5.0)
[2023-11-05 11:50] LABS: BLOOD UREA NITROGEN 14.5 mg/dL (7-18); CALCIUM 8.8 mg/dL (8.5-10.1)
[2023-11-05 11:52] LABS: CREATININE 1.2 mg/dL (0.55-1.3)
[2023-11-05 11:54] LABS: BILIRUBIN,TOTAL 0.2 mg/dL (0.2-1); TOT PROT 7.2 g/dl (6.4-8.2)
[2023-11-05] MEDS: METHOCARBAMOL 500 MG TABLET PO PRN (22:44)
[2023-11-06] MEDS: diazePAM 5 MG TABLET PO SCH (06:40)
[2023-11-06] MEDS: diazePAM 5 MG TABLET PO PRN (10:26)
[2023-11-07] MEDS: diazePAM 5 MG TABLET PO SCH (06:33)
[2023-11-08] MEDS: diazePAM 5 MG TABLET PO ONE (06:10)
[2023-11-09 10:11] VITALS: TEMP 97.7
[2023-11-09 12:48] VITALS: BP 138/78; PULSE 78; RESP 18
[2023-11-09 15:10] LABS: BASO % 0.6 % (0-2.0); EOS % 3.4 % (0-4.5); HEMATOCRIT 32.9 % (35.4-49); LYMPH % 15.8 % (8-40); MCHC 33.3 g/dl (32.0-35.9); MEAN CELL VOLUME 90.1 fl (80-96); MEAN PLT VOLUME 7.4 fl (7.5-11.1); MONO % 15.2 % (3.8-10.2); PLATELET COUNT 319 10^3/uL (134-434); RBC 3.65 M/mm3 (4.00-5.60); RDW 16.5 % (11.9-15.9)
[2023-11-09 15:16] LABS: POTASSIUM 4.5 mmol/L (3.5-5.1)
[2023-11-09 15:18] LABS: ALBUMIN 3.3 g/dl (3.4-5.0); BLOOD UREA NITROGEN 15.4 mg/dL (7-18); CALCIUM 8.8 mg/dL (8.5-10.1)
[2023-11-09 15:21] LABS: CREATININE 1.1 mg/dL (0.55-1.3)
[2023-11-09 15:23] LABS: BILIRUBIN,TOTAL 0.2 mg/dL (0.2-1); TOT PROT 6.8 g/dl (6.4-8.2)
[2023-11-09 16:13] LABS: HIV INTERPRETATION NEGATIVE (NEGATIVE)
== END 2023-11-09 12:58 | disposition other institution (70) | DRG 897 ==
LOC: YASAS 16:43 → Y3N 20:23
PROVIDERS: ADMIT Allergy & Immunology; ATTEND Surgery
PROC: HZ2ZZZZ Detoxification Services for Substance Abuse Treatment (ICD-10-PCS; principal; 2023-11-04)
DX: F10.230 Alcohol dependence with withdrawal, uncomplicated (principal); F14.20 Cocaine dependence, uncomplicated; F17.210 Nicotine dependence, cigarettes, uncomplicated; E78.5 Hyperlipidemia, unspecified; I10 Essential (primary) hypertension; K21.9 Gastro-esophageal reflux disease without esophagitis; E03.9 Hypothyroidism, unspecified; E11.9 Type 2 diabetes mellitus without complications; Z79.84 Long term (current) use of oral hypoglycemic drugs; Z87.19 Personal history of other diseases of the digestive system; Z99.89 Dependence on other enabling machines and devices
CPT/HCPCS: 36415; 80053; 80305; 80307; 82962; 85025; 85027; 86593; 86780; 87389; 93005; 93010

== ENCOUNTER 2023-11-09 13:36 | Inpatient (IN) | payer OTHER ==
[2023-11-09] MEDS ORDERED: IBUPROFEN 600 MG TABLET (FP) PO PRN (15:09)
[2023-11-09] MEDS ORDERED: NALOXONE (NARCAN) HCL 4 MG/0.1 ML SPRAY NS PRN (15:09)
[2023-11-09] MEDS ORDERED: BENZONATATE 200 MG CAPSULE PO PRN (15:09)
[2023-11-09] MEDS ORDERED: guaiFENesin 600 MG TABLET.ER (FP) PO PRN (15:09)
[2023-11-09] MEDS ORDERED: NICOTINE POLACRILEX 4 MG LOZENGE BC PRN (15:09)
[2023-11-09] MEDS ORDERED: IBUPROFEN 400 MG TABLET (FP) PO PRN (15:09)
[2023-11-09] MEDS ORDERED: NICOTINE 14 MG/24 HOURS TOPICAL PATCH TD PRN (15:09)
[2023-11-09] MEDS ORDERED: NICOTINE POLACRILEX 4 MG GUM BUC PRN (15:09)
[2023-11-09] MEDS ORDERED: BENZOCAINE/MENTHOL (CHLORASEPTIC ) LOZENGE MM PRN (15:09)
[2023-11-09] MEDS ORDERED: LOPERAMIDE HCL 2 MG CAPSULE PO PRN (15:09)
[2023-11-09] MEDS ORDERED: METHOCARBAMOL 500 MG TABLET PO PRN (15:09)
[2023-11-09] MEDS ORDERED: ACETAMINOPHEN 325 MG TABLET (FP) PO PRN (15:09)
[2023-11-09] MEDS ORDERED: POLYETHYLENE GLYCOL (HEALTHYLAX) 3350 17 GM PACKET PO PRN (15:09)
[2023-11-09] MEDS ORDERED: hydrOXYzine PAMOATE 25 MG CAPSULE (FP) PO PRN (15:09)
[2023-11-09] MEDS ORDERED: MAGNESIUM HYDROX 2400MG/30ML ORAL SUSPENSION 30 ML CUP PO PRN (15:09)
[2023-11-09] MEDS ORDERED: NALOXONE HCL 0.4 MG/ML VIAL IVPUSH PRN (15:09)
[2023-11-09] MEDS ORDERED: MAG HYDROX/AL HYDROX/SIMETH 30 ML UNIT-DOSE CUP PO PRN (15:09)
[2023-11-09] MEDS: ATORVASTATIN CA 10 MG TABLET (FP) PO SCH (21:20)
[2023-11-09] MEDS: THIAMINE 100 MG TABLET PO SCH (21:20)
[2023-11-09] MEDS: MESALAMINE 800 MG TABLET.DR PO SCH (21:20)
[2023-11-09] MEDS: MELATONIN 5 MG TABLETS PO SCH (21:21)
[2023-11-09] MEDS: MESALAMINE 4 GM/60 ML ENEMA RC SCH (21:22)
[2023-11-10] MEDS: LEVOTHYROXINE NA 88 MCG TABLET (FP) PO SCH (06:25)
[2023-11-10] MEDS: PRENATAL VITAMINS W/ FOLIC ACID TABLET (FP) PO SCH (10:08)
[2023-11-10] MEDS: amLODIPine BESYLATE 5 MG TABLET (FP) PO SCH (10:09)
[2023-11-10] MEDS: PANTOPRAZOLE 20 MG TABLET PO SCH (10:09)
[2023-11-10] MEDS: MELATONIN 5 MG TABLETS PO SCH (21:44)
[2023-11-11] MEDS: CHOLECALCIFEROL (VIT D3) 1,000 UNIT (25 MCG) TABLET PO SCH (13:43)
[2023-11-11] MEDS: TRIAMCINOLONE ACET 0.1% CREAM 15 GM TUBE TP SCH (13:44)
[2023-11-12] MEDS: PNEUMOC 20-VAL CONJ-DIP CRM/PF 0.5 ML SYRINGE IM ONE (13:00)
[2023-11-20 06:34] VITALS: RESP 18; TEMP 97.4
[2023-11-20 09:19] VITALS: BP 131/70; PULSE 77
== END 2023-11-20 09:47 | disposition home or self-care (01) | DRG 895 ==
LOC: YASAS 13:36 → Y5N 13:39
PROVIDERS: ADMIT Allergy & Immunology; ATTEND Psychiatry & Neurology Pain Medicine
PROC: HZ42ZZZ Group Counseling for Substance Abuse Treatment, Cognitive-Behavioral (ICD-10-PCS; principal; 2023-11-09)
DX: F10.20 Alcohol dependence, uncomplicated (principal); F14.20 Cocaine dependence, uncomplicated; F17.210 Nicotine dependence, cigarettes, uncomplicated; F19.982 Other psychoactive substance use, unspecified with psychoactive substance-induced sleep disorder; F41.9 Anxiety disorder, unspecified; F32.A Depression, unspecified; I10 Essential (primary) hypertension; E11.9 Type 2 diabetes mellitus without complications; E78.5 Hyperlipidemia, unspecified; E03.9 Hypothyroidism, unspecified; K21.9 Gastro-esophageal reflux disease without esophagitis; M06.9 Rheumatoid arthritis, unspecified
CPT/HCPCS: 82962

== ENCOUNTER 2024-02-05 15:10 | Inpatient (IN) | payer OTHER ==
[2024-02-05 16:40] VITALS: BMI 25.4
[2024-02-05] MEDS ORDERED: guaiFENesin 600 MG TABLET.ER (FP) PO PRN (17:16)
[2024-02-05] MEDS ORDERED: LOPERAMIDE HCL 2 MG CAPSULE PO PRN (17:16)
[2024-02-05] MEDS ORDERED: ACETAMINOPHEN 325 MG TABLET (FP) PO PRN (17:16)
[2024-02-05] MEDS ORDERED: BENZONATATE 200 MG CAPSULE PO PRN (17:16)
[2024-02-05] MEDS ORDERED: IBUPROFEN 600 MG TABLET (FP) PO PRN (17:16)
[2024-02-05] MEDS ORDERED: IBUPROFEN 400 MG TABLET (FP) PO PRN (17:16)
[2024-02-05] MEDS ORDERED: NICOTINE POLACRILEX 2 MG GUM BUC PRN (17:16)
[2024-02-05] MEDS ORDERED: POLYETHYLENE GLYCOL (HEALTHYLAX) 3350 17 GM PACKET PO PRN (17:16)
[2024-02-05] MEDS ORDERED: BISMUTH SUBSALICYLATE 524 MG/30 ML PO PRN (17:16)
[2024-02-05] MEDS ORDERED: ONDANSETRON *ODT* 4 MG TABLET SL PRN (17:16)
[2024-02-05] MEDS ORDERED: NICOTINE POLACRILEX 2 MG LOZENGE BC PRN (17:16)
[2024-02-05] MEDS ORDERED: MAGNESIUM HYDROX 2400MG/30ML ORAL SUSPENSION 30 ML CUP PO PRN (17:16)
[2024-02-05] MEDS ORDERED: BENZOCAINE/MENTHOL (CHLORASEPTIC ) LOZENGE MM PRN (17:16)
[2024-02-05] MEDS ORDERED: HYDROCORTISONE 2.5% TOPICAL CREAM 30 GM TUBE TP PRN (20:40)
[2024-02-06] MEDS: THIAMINE 100 MG TABLET PO SCH (01:33)
[2024-02-06] MEDS: MELATONIN 5 MG TABLETS PO SCH (01:34)
[2024-02-06] MEDS: ATORVASTATIN CA 10 MG TABLET (FP) PO SCH (01:34)
[2024-02-06] MEDS: MESALAMINE 800 MG TABLET.DR PO SCH (01:35)
[2024-02-06] MEDS: LEVOTHYROXINE NA 88 MCG TABLET (FP) PO SCH (08:19)
[2024-02-06] MEDS: PRENATAL VITAMINS W/ FOLIC ACID TABLET (FP) PO SCH (10:14)
[2024-02-06] MEDS: amLODIPine BESYLATE 5 MG TABLET (FP) PO SCH (10:14)
[2024-02-06] MEDS: PANTOPRAZOLE 20 MG TABLET PO SCH (10:15)
[2024-02-06] MEDS: CHOLECALCIFEROL (VIT D3) 1,000 UNIT (25 MCG) TABLET PO SCH (10:48)
[2024-02-06 12:33] LABS: HEMATOCRIT 35.8 % (35.4-49); HEMOGLOBIN 11.8 GM/dL (11.7-16.9); MCH 30.1 pg (25.7-33.7); MEAN CELL VOLUME 91.1 fl (80-96); MEAN PLT VOLUME 7.9 fl (7.5-11.1); PLATELET COUNT 327 10^3/uL (134-434); RBC 3.92 M/mm3 (4.00-5.60); RDW 16.3 % (11.9-15.9); WHITE BLOOD COUNT 6.1 K/mm3 (4.0-10.0)
[2024-02-06 13:35] LABS: CHLORIDE 109 mmol/L (98-107); SODIUM 140 mmol/L (136-145)
[2024-02-06 13:41] LABS: BLOOD UREA NITROGEN 18.4 mg/dL (7-18)
[2024-02-06 13:43] LABS: ALBUMIN 3.7 g/dl (3.4-5.0); CALCIUM 9.3 mg/dL (8.5-10.1)
[2024-02-06 13:44] LABS: CO2 27 mmol/L (21-32); GLUCOSE,RANDOM 119 mg/dL (74-106)
[2024-02-06 13:46] LABS: SGPT/ALT 21 U/L (13-61)
[2024-02-06 13:47] LABS: CREATININE 1.1 mg/dL (0.55-1.3); SGOT/AST 35 U/L (15-37)
[2024-02-06 13:48] LABS: BILIRUBIN,TOTAL 0.5 mg/dL (0.2-1); TOT PROT 7.7 g/dl (6.4-8.2)
[2024-02-06 13:49] LABS: ALK PHOS 96 U/L (45-117)
[2024-02-06 13:51] LABS: ANION GAP 4 mmol/L (4-13); POTASSIUM 6.6 mmol/L (3.5-5.1)
[2024-02-06] MEDS: MAG HYDROX/AL HYDROX/SIMETH 30 ML UNIT-DOSE CUP PO PRN (14:06)
[2024-02-06 17:04] LABS: POTASSIUM 4.4 mmol/L (3.5-5.1)
[2024-02-06 17:07] LABS: ALBUMIN 3.4 g/dl (3.4-5.0); BLOOD UREA NITROGEN 14.1 mg/dL (7-18)
[2024-02-06 17:10] LABS: CREATININE 0.9 mg/dL (0.55-1.3)
[2024-02-06 17:12] LABS: BILIRUBIN,TOTAL 0.3 mg/dL (0.2-1); TOT PROT 6.8 g/dl (6.4-8.2)
[2024-02-07] MEDS ORDERED: HYDROCORTISONE 1% TOPICAL CREAM 30 GM TUBE TP PRN (09:45)
[2024-02-07 12:18] LABS: HIV INTERPRETATION NEGATIVE (NEGATIVE)
[2024-02-09 09:12] VITALS: BP 141/80; PULSE 81; RESP 17; TEMP 98.2
== END 2024-02-09 11:11 | disposition home or self-care (01) | DRG 897 ==
LOC: YASAS 15:10 → Y6N 02-06 02:25
PROVIDERS: ADMIT Allergy & Immunology; ATTEND Surgery
PROC: HZ2ZZZZ Detoxification Services for Substance Abuse Treatment (ICD-10-PCS; principal; 2024-02-06)
DX: F10.230 Alcohol dependence with withdrawal, uncomplicated (principal); F14.20 Cocaine dependence, uncomplicated; F17.210 Nicotine dependence, cigarettes, uncomplicated; I10 Essential (primary) hypertension; K21.9 Gastro-esophageal reflux disease without esophagitis; E78.5 Hyperlipidemia, unspecified; E03.9 Hypothyroidism, unspecified; E11.9 Type 2 diabetes mellitus without complications; Z79.84 Long term (current) use of oral hypoglycemic drugs; Z86.19 Personal history of other infectious and parasitic diseases
CPT/HCPCS: 36415; 80053; 80305; 80307; 82962; 85027; 86593; 86780; 87389; 87491; 87591; 87661